=== PATIENT | female | born 1960 | race Caucasian/White ===

== ENCOUNTER → 2016-08-12 | Outpatient (CLI) | payer OTHER, BC ==
--- NOTE | 2016-08-16 11:35 | RADIOLOGY REPORT PS360 ---
DIG MAMM-DX LILIYA W/CAD COMPARISON: Digital mammograms 08/10/2015 INDICATION: There is a history of previous lumpectomy right breast for malignancy. There also is a history of breast cancer patient's 2 paternal great aunts TECHNIQUE: Standard MLO and CC views were obtained along with a 90 degrees lateral view and spot CC view right breast. FINDINGS: Again minimal post lumpectomy scarring seen upper outer quadrant right breast. The breasts are composed primarily of fat with scattered fibroglandular densities throughout. There are few scattered benign-appearing calcination is in each breast as noted previously. There is no suspicious lesion and no suspicious microcalcifications. IMPRESSION: Fibrofatty parenchyma with stable post lumpectomy scarring right breast and no suspicious lesion seen recommend yearly follow-up BI-RADS CATEGORY: 2_Benign RECOMMENDED FOLLOWUP: 12M 12 MONTH FOLLOW-UP (A letter has been sent to the patient regarding results of the study.)
--- NOTE | 2016-08-16 16:26 | RADIOLOGY REPORT PS360 ---
US BREAST-LT COMPLETE W/AXILLA COMPARISON: Ultrasound left breast 03/01/2016 HISTORY: Follow-up benign-appearing lesions circumareolar region on previous ultrasound TECHNIQUE: Targeted ultrasound circumareolar region FINDINGS: Again noted is a small hypoechoic lesion which appears to be a cluster of microcyst at the 12:00 position near the nipple unchanged in size and overall appearance from previous exam there is an oval hypoechoic heterogenic lesion at the 8:00 position near the nipple measuring 0.6 x 0.4 x 0.3 cm and this is stable and unchanged in appearance from the previous ultrasound exam and may be a small fibroadenoma or cluster of tiny apocrine cysts there is a stable normal-appearing node in the axilla basely unchanged in size and appearance from previous exam. The findings on the mammogram are unchanged from the previous mammogram 08/10/2015 IMPRESSION: Stable ultrasound findings with no suspicious lesion seen and I feel the patient should continue with yearly screening mammography, BI-RADS Category 2
== END ==
LOC: RAD 12:53
DX: Z85.3 Personal history of malignant neoplasm of breast (principal); Z12.31 Encounter for screening mammogram for malignant neoplasm of breast
CPT/HCPCS: G0204

== ENCOUNTER → 2017-04-20 | Outpatient (CLI) | payer OTHER, BC ==
[~2017-04-20] MED LIST: ADULT LOW DOSE81 MG PO; CENTRUM SILVER1 EACH PO; METOPROLOL SUCC25 M1 PO; SYNTHROID 0.1M0.1 MG PO
[2017-04-20 08:19] LABS: HEMOGLOBIN 15.3 g/dL (12.2-16.2); LYMPH % 36.9 % (10-50.0)
[2017-04-20 09:47] LABS: BUN 15 mg/dL (7-18)
[2017-04-20 09:48] LABS: GFR (ESTIMATED) 86 ML/MIN (59-)
--- NOTE | 2017-04-21 09:10 | RADIOLOGY REPORT PS360 ---
CT CHEST W/ CONTRAST with INDICATION: BREAST CA, HYPOTHYROIDISM, PULMONARY NODULES ORDERING PHYSICIAN: Justin Naranjo MD PATIENT AGE: 57 years COMPARISON: 11/01/2016 TECHNIQUE: Axial images are obtained without contrast. Sagittal and coronal reformatted images are reviewed as well. FINDINGS: Surgical clips are present in the paratracheal region from prior thyroidectomy. There is slight increased density in the anterior mediastinum which may be due to residual thymic tissue not significantly changed. No mediastinal or hilar mass or adenopathy. Normal heart size without evidence of air cardiomegaly thickening. There are stable bilateral noncalcified and calcified pulmonary nodules. No new nodules. No effusions or infiltrates. Images of the upper abdomen are unremarkable. No acute bony anomalies evident. IMPRESSION: Overall stable CT appearance of the abdomen with no convincing evidence of metastatic disease
== END ==
LOC: RAD 07:32
PROVIDERS: Nurse Practitioner
DX: R91.8 Other nonspecific abnormal finding of lung field (principal); E03.9 Hypothyroidism, unspecified; C50.911 Malignant neoplasm of unspecified site of right female breast
CPT/HCPCS: Q9967